=== PATIENT | male | born 1955 | race African-American/Black ===

== ENCOUNTER 2019-07-07 14:11 | Observation (INO) ==
[2019-07-07] MEDS ORDERED: DILTIAZEM 50 MG/10 ML VIAL IV STA (15:11)
[2019-07-07 15:27] LABS: Basophils % 0.6 % (0.0-0.8); Eosinophils # 0.2 10*3/uL (0.0-0.87); Eosinophils % 4.3 % (0.00-10.9); Hematocrit 41.8 VOL% (42.0-52.0); Hemoglobin 13.8 GM/DL (14.0-18.0); Immature Granulocytes % 0.2 %; Immature Granulocytes Absolute 0.01 #; Lymphocytes # 1.9 10*3/uL (1.4-4.0); Mean Corpuscular Volume 82.9 FL (87-102); Mean Platelet Volume 11.6 FL (9.6-12.0); Monocytes % 9.9 % (1.7-12.7); Platelet Count 217 T/CUMM (130-400); Red Blood Count 5.04 MC/CUMM (3.8-5.5); Red Cell Distribution Width 14.3 % (9.3-17.3); White Blood Count 4.8 T/CUMM (4-12)
[2019-07-07] MEDS ORDERED: ONDANSETRON 4 MG/2 ML VIAL IV PRN (15:54)
[2019-07-07] MEDS ORDERED: ACETAMINOPHEN 325 MG TABLET PO PRN (15:54)
[2019-07-07 15:55] LABS: Alanine Aminotransferase 22 U/L (16-61); Albumin 3.8 G/DL (3.4-5.0); Alkaline Phosphatase 46 U/L (45-117); Aspartate Amino Transferase 16 U/L (0-37); Blood Urea Nitrogen 29 MG/DL (7-18); Calcium 9.2 MG/DL (8.5-10.1); Glucose 115 MG/DL (74-106); Osmolality,Calculated 283.5 MOS/KG (273-304); Total Protein 7.8 G/DL (6.4-8.3); Troponin I < 0.015 NG/ML (0.00-0.045)
[2019-07-07] MEDS: dilTIAZem Drip 125 MG/125 ML PREMIX IV SCH ×2 (16:16→18:27)
[2019-07-07 16:26] LABS: Free T4 (Free Thyroxine) 0.9 NG/DL (0.76-1.46); Thyroid Stimulating Hormone 1.63 uIU/ml (0.358-3.74)
[2019-07-07] MEDS: ENOXAPARIN 100 MG/ML SYRINGE SUBCUT SCH (17:06)
[2019-07-07] MEDS: SODIUM CHLORIDE 0.9% 1,000 ML IV SCH (17:07)
[2019-07-08 01:17] LABS: Risk Ratio 5.09; VLDL CHOLESTEROL 57.6 MG/DL
[2019-07-08] MEDS: ENOXAPARIN 100 MG/ML SYRINGE SUBCUT SCH (04:18)
[2019-07-08] MEDS ORDERED: PANTOPRAZOLE 40 MG TABLET PO SCH (09:00)
[2019-07-08] MEDS ORDERED: SILDENAFIL 50 MG PO PRN (10:54)
[2019-07-08] MEDS ORDERED: ETODOLAC 400 MG TABLET PO PRN (10:54)
[2019-07-08] MEDS ORDERED: APIXABAN 5 MG TABLET PO SCH (11:00)
[2019-07-08] MEDS ORDERED: MAGNESIUM SULF RIDER 2 GM in PREMIX 1 EACH IV ONE (11:13)
[2019-07-08] MEDS ORDERED: ASCORBIC ACID 500 MG TABLET PO SCH (11:30)
[2019-07-08] MEDS ORDERED: DILTIAZEM CD 240 MG CAPSULE PO SCH (11:30)
[2019-07-08] MEDS: SODIUM CHLORIDE 0.9% 1,000 ML IV SCH (13:09)
[2019-07-08] MEDS: dilTIAZem Drip 125 MG/125 ML PREMIX IV SCH (15:41)
[2019-07-08 16:18] VITALS: BP 113/74
[2019-07-08] MEDS ORDERED: traZODone 50 MG TABLET PO SCH (21:00)
[2019-07-09] MEDS ORDERED: LEVOTHYROXINE 25 MCG TABLET PO SCH (07:00)
[2019-07-09] MEDS ORDERED: MULTIVITAMIN (CENTRUM) TABLET PO SCH (09:00)
[2019-07-09] MEDS ORDERED: PANTOPRAZOLE 40 MG TABLET PO SCH (09:00)
[2019-07-09] MEDS ORDERED: LOSARTAN 25 MG TABLET PO SCH (09:00)
[2019-07-09] MEDS ORDERED: MAGNESIUM CHLORIDE 64 MG TABLET PO SCH (09:00)
[2019-07-09] MEDS ORDERED: hydroCHLOROthiazide 25 MG TABLET PO SCH (09:00)
[2019-07-09] MEDS ORDERED: LISINOPRIL 20 MG TABLET PO SCH (09:00)
== END 2019-07-08 18:18 | disposition home or self-care (01) ==
LOC: N.ED 14:11 → N.EDINP 14:11 → N.TELEN 16:36